=== PATIENT | male | born 1975 | race African-American/Black ===

== ENCOUNTER 2018-12-26 10:05 | Outpatient (CLI) | payer OTHER | END 2018-12-26 10:18 | disposition home or self-care (01) | LOC: RAD 10:05 | DX: M41.80 Other forms of scoliosis, site unspecified (principal); F17.200 Nicotine dependence, unspecified, uncomplicated ==

== ENCOUNTER → 2019-05-12 | Outpatient (CLI) | payer OTHER | END | disposition home or self-care (01) | LOC: RAD 15:00 | DX: M54.5 Low back pain (principal); M43.16 Spondylolisthesis, lumbar region ==

== ENCOUNTER 2019-12-22 07:13 | Inpatient (IN) | payer OTHER ==
[~2019-12-22] VITALS: Ht 177.8 cm; Wt 77.1 kg
[2019-12-24] MEDS ORDERED: B Complex CAPSULE PO (13:10)
[2019-12-24] MEDS ORDERED: Neurin-Sl Tablet Sl SL (13:10)
[2019-12-24] MEDS ORDERED: PERCOCET 5-3251 EACH PO (13:11)
== END 2019-12-24 14:49 | disposition home or self-care (01) | DRG 342 ==
LOC: ER 07:13 → SURG 10:47 → SURH 10:47
PROVIDERS: ADMIT Surgery; ATTEND Surgery
PROC: 0DTJ4ZZ Resection of Appendix, Percutaneous Endoscopic Approach (ICD-10-PCS; principal; 2019-12-22)
PROC: 30233R1 Transfusion of Nonautologous Platelets into Peripheral Vein, Percutaneous Approach (ICD-10-PCS; 2019-12-23)
DX: K35.890 Other acute appendicitis without perforation or gangrene (principal); F84.0 Autistic disorder; R10.31 Right lower quadrant pain

== ENCOUNTER 2020-04-22 11:42 | Outpatient (CLI) | payer OTHER ==
[~2020-04-22 11:42] MED LIST: B Complex CAPSULE PO; Neurin-Sl Tablet Sl SL; PERCOCET 5-3251 EACH PO
== END 2020-04-22 11:51 | disposition home or self-care (01) ==
LOC: RAD 11:42
PROVIDERS: ATTEND Internal Medicine Cardiovascular Disease
DX: J32.0 Chronic maxillary sinusitis (principal)

== ENCOUNTER 2020-06-27 08:51 | Outpatient (CLI) | payer OTHER | END 2020-06-27 09:08 | disposition home or self-care (01) | LOC: SONOGRAMA 08:51 | PROVIDERS: ATTEND Internal Medicine Cardiovascular Disease | DX: K76.0 Fatty (change of) liver, not elsewhere classified (principal); D69.8 Other specified hemorrhagic conditions ==

== ENCOUNTER 2020-09-13 10:13 | Outpatient (CLI) | payer OTHER ==
[~2020-09-13 10:13] MED LIST changes: +DICLOFENAC POTA50 MG PO; +NORFLEX100MG PO
== END 2020-09-13 18:00 | disposition home or self-care (01) ==
LOC: LAB 10:13
PROVIDERS: ATTEND Physical Medicine & Rehabilitation
DX: R05 Cough (principal); R50.9 Fever, unspecified; R06.02 Shortness of breath; Z03.818 Encounter for observation for suspected exposure to other biological agents ruled out

== ENCOUNTER → 2020-10-10 | Outpatient (CLI) | payer OTHER | END | disposition home or self-care (01) | LOC: SONOGRAMA 08:12 | PROVIDERS: ATTEND Internal Medicine Gastroenterology | DX: K76.0 Fatty (change of) liver, not elsewhere classified (principal) ==

== ENCOUNTER 2021-03-11 09:00 | Outpatient (CLI) | payer OTHER | END 2021-03-11 09:30 | disposition home or self-care (01) | LOC: PPH VACUNA 09:00 | PROVIDERS: ATTEND Emergency Medicine Pediatric Emergency Medicine | DX: Z23 Encounter for immunization (principal) ==

== ENCOUNTER 2022-02-20 10:39 | Outpatient (CLI) | payer OTHER | END 2022-02-20 10:45 | disposition home or self-care (01) | LOC: MRI 10:39 | PROVIDERS: ATTEND Physical Medicine & Rehabilitation | DX: M54.50 Low back pain, unspecified (principal) | CPT/HCPCS: 72148 ==

== ENCOUNTER 2022-08-17 09:59 | Outpatient (CLI) | payer OTHER | END 2022-08-17 10:11 | disposition home or self-care (01) | LOC: RAD 09:59 | PROVIDERS: ATTEND Internal Medicine Cardiovascular Disease | DX: M54.2 Cervicalgia (principal); R05.3 Chronic cough; F17.200 Nicotine dependence, unspecified, uncomplicated ==

== ENCOUNTER 2022-09-22 08:00 | Outpatient (CLI) | payer OTHER | END 2022-09-22 08:01 | disposition home or self-care (01) | LOC: NUCLEAR 08:00 | PROVIDERS: ATTEND Internal Medicine Cardiovascular Disease | DX: I65.22 Occlusion and stenosis of left carotid artery (principal); E67.1 Hypercarotenemia ==

== ENCOUNTER 2024-08-22 09:40 | Outpatient (CLI) | payer OTHER | END 2024-08-22 09:47 | disposition home or self-care (01) | LOC: RAD 09:40 | PROVIDERS: ATTEND Internal Medicine Cardiovascular Disease | DX: I10 Essential (primary) hypertension (principal) ==